=== PATIENT | female | born 1940 | race Caucasian/White ===

== ENCOUNTER 2017-12-09 12:35 | Outpatient (CLI) | payer MEDICARE, BC | END 2017-12-09 23:59 | disposition home or self-care (01) | LOC: CARD DIAG 12:35 | PROVIDERS: ATTEND Family Medicine | DX: I08.1 Rheumatic disorders of both mitral and tricuspid valves (principal); J44.9 Chronic obstructive pulmonary disease, unspecified; I27.20 Pulmonary hypertension, unspecified; R06.00 Dyspnea, unspecified | CPT/HCPCS: 93306 ==

== ENCOUNTER 2018-03-20 06:53 | Day surgery (SDC) | payer MEDICARE, BC ==
[2018-03-19 15:13] LABS: BASOPHILS % (AUTO) 0.8 % (0-1); EOSINOPHILS # (AUTO) 0.1 X10'3 (0-0.9); EOSINOPHILS % (AUTO) 1.6 % (0-6); HEMATOCRIT 40.4 % (35.0-45.0); HEMOGLOBIN 13.5 g/dl (12.0-16.0); LYMPHOCYTES # (AUTO) 1.8 X10'3 (1.1-4.8); LYMPHOCYTES % (AUTO) 28.2 % (21-51); MEAN CORPUSCULAR HGB CONC 33.3 % (33.0-36.5); MEAN CORPUSCULAR VOLUME 84.1 FL (78-98); MEAN PLATELET VOLUME 7.7 FL (7.4-10.4); MONOCYTES # (AUTO) 0.6 X10'3 (0-0.9); MONOCYTES % (AUTO) 8.8 % (2-12); NEUTROPHILS % (AUTO) 60.6 % (42-75); PLATELET COUNT 198 X10'3 (140-440); RED CELL DISTRIBUTION WIDTH 16.6 % (11.5-14.5); WHITE BLOOD COUNT 6.5 X10'3 (4.5-11.0)
[2018-03-19 15:21] LABS: PROTHROMBIN TIME 10.7 SECONDS (9.0-12.0)
[2018-03-19 15:23] LABS: ALBUMIN 3.4 G/DL (3.4-5.0); ANION GAP 7 (8-16); BLOOD UREA NITROGEN 18 MG/DL (7-18); CALCIUM 9.6 MG/DL (8.5-10.1); CHLORIDE 102 MMOL/L (99-107); GLUCOSE 109 MG/DL (70-104); SODIUM 138 MMOL/L (135-145); TOTAL CARBON DIOXIDE 29.5 MMOL/L (24-32); eGFR 61 ML/MIN
[2018-03-20] VITALS (16 sets, daily range): BP systolic 108–136; BP diastolic 54–77
[~2018-03-20] VITALS: Ht 162.6 cm; Wt 98.0 kg
[2018-03-20] MEDS ORDERED: atropine 0.1mg/ml 10ml syringe IV ONE (07:20)
[2018-03-20] MEDS ORDERED: morphine 10mg/ml inj. IV ONE (07:20)
[2018-03-20] MEDS ORDERED: diphenhydrAMINE 25mg capsule PO ONE (07:20)
[2018-03-20] MEDS ORDERED: normal saline 1000ml 1,000 ML IV SCH (07:20)
[2018-03-20] MEDS ORDERED: amiodarone in dextrose, iso-osm 150mg/100ml bag IV ONE (07:20)
[2018-03-20] MEDS ORDERED: MIDAZolam 5mg/ml 2ml vial IV ONE (07:20)
[2018-03-20] MEDS ORDERED: LORazepam 0.5 MG tablet PO ONE (07:20)
[2018-03-20] MEDS ORDERED: RESTASIS (07:43)
[2018-03-20] MEDS ORDERED: DULO-31 PO (07:43)
[2018-03-20] MEDS ORDERED: APIX5TAB3 PO (07:43)
[2018-03-20] MEDS ORDERED: LEVO112T52 PO (07:43)
[2018-03-20] MEDS ORDERED: DESL5TAB28 PO (07:43)
[2018-03-20] MEDS ORDERED: MONT10TA21 PO (07:43)
[2018-03-20] MEDS ORDERED: ESOM40CA PO (07:43)
[2018-03-20] MEDS ORDERED: SOTA80TA73 PO (07:43)
[2018-03-20] MEDS ORDERED: EXEN2PEN SQ (07:43)
[2018-03-20] MEDS ORDERED: TRAZ-219 PO (07:43)
[2018-03-20] MEDS ORDERED: METF10004 PO (07:43)
[2018-03-20] MEDS ORDERED: LOSA25TA96 PO (07:43)
[2018-03-20] MEDS ORDERED: SOLI10TA2 PO (07:43)
== END 2018-03-20 13:30 | disposition home or self-care (01) ==
LOC: SSTAY O 06:53
PROVIDERS: ATTEND Internal Medicine Cardiovascular Disease
DX: I48.1 Persistent atrial fibrillation (principal); E11.9 Type 2 diabetes mellitus without complications; I10 Essential (primary) hypertension; K21.9 Gastro-esophageal reflux disease without esophagitis; E78.5 Hyperlipidemia, unspecified; F32.9 Major depressive disorder, single episode, unspecified; E03.9 Hypothyroidism, unspecified; G47.33 Obstructive sleep apnea (adult) (pediatric); E66.9 Obesity, unspecified; J44.9 Chronic obstructive pulmonary disease, unspecified; I27.20 Pulmonary hypertension, unspecified; I08.1 Rheumatic disorders of both mitral and tricuspid valves; Z90.710 Acquired absence of both cervix and uterus; Z79.84 Long term (current) use of oral hypoglycemic drugs; Z79.01 Long term (current) use of anticoagulants; Z79.891 Long term (current) use of opiate analgesic; Z68.37 Body mass index [BMI] 37.0-37.9, adult; Z85.3 Personal history of malignant neoplasm of breast; Z91.041 Radiographic dye allergy status; Z88.0 Allergy status to penicillin; Z91.048 Other nonmedicinal substance allergy status; Z92.3 Personal history of irradiation; Z88.8 Allergy status to other drugs, medicaments and biological substances; Z79.899 Other long term (current) drug therapy; Z98.890 Other specified postprocedural states
CPT/HCPCS: 36415; 80048; 85025; 85610; 92960; 93005; J0282; J2250; J2270; J7030; Q0163; A4620; J0461

== ENCOUNTER 2018-05-13 05:56 | Day surgery (SDC) | payer MEDICARE, BC ==
[2018-05-12 12:09] LABS: BASOPHILS % (AUTO) 0.3 % (0-1); EOSINOPHILS # (AUTO) 0.1 X10'3 (0-0.9); EOSINOPHILS % (AUTO) 1.7 % (0-6); HEMATOCRIT 42.1 % (35.0-45.0); HEMOGLOBIN 13.7 g/dl (12.0-16.0); LYMPHOCYTES # (AUTO) 1.3 X10'3 (1.1-4.8); LYMPHOCYTES % (AUTO) 20.6 % (21-51); MEAN CORPUSCULAR HEMOGLOBIN 28.1 PG (27.0-31.0); MEAN CORPUSCULAR HGB CONC 32.6 % (33.0-36.5); MEAN CORPUSCULAR VOLUME 86.2 FL (78-98); MEAN PLATELET VOLUME 7.4 FL (7.4-10.4); MONOCYTES # (AUTO) 0.5 X10'3 (0-0.9); MONOCYTES % (AUTO) 7.3 % (2-12); NEUTROPHILS # (AUTO) 4.4 X10'3 (1.8-7.7); NEUTROPHILS % (AUTO) 70.1 % (42-75); PLATELET COUNT 229 X10'3 (140-440); RED BLOOD COUNT 4.89 X10'6 (4.20-5.60); RED CELL DISTRIBUTION WIDTH 17.2 % (11.5-14.5); WHITE BLOOD COUNT 6.3 X10'3 (4.5-11.0)
[2018-05-12 12:19] LABS: PROTHROMBIN TIME 10.8 SECONDS (9.0-12.0)
[2018-05-12 12:23] LABS: ALBUMIN 3.4 G/DL (3.4-5.0); ANION GAP 11 (8-16); BLOOD UREA NITROGEN 14 MG/DL (7-18); BUN/CREATININE RATIO 17.3 (6.6-38.0); CALCIUM 9.5 MG/DL (8.5-10.1); CHLORIDE 102 MMOL/L (99-107); CREATININE 0.81 MG/DL (0.40-0.90); GLUCOSE 120 MG/DL (70-104); POTASSIUM 4.1 MMOL/L (3.5-5.1); SODIUM 139 MMOL/L (135-145); eGFR 69 ML/MIN
[~2018-05-13] VITALS: Ht 162.6 cm; Wt 96.4 kg
[2018-05-13] VITALS (13 sets, daily range): BP systolic 116–145; BP diastolic 61–80
[~2018-05-13 05:56] MED LIST: APIX5TAB3 PO; DESL5TAB28 PO; DULO-31 PO; ESOM40CA PO; EXEN2PEN SQ; LEVO112T52 PO; LOSA25TA96 PO; METF-438 PO; MONT10TA21 PO; RESTASIS; SOLI10TA2 PO; SOTA80TA73 PO; TRAZ-219 PO
[2018-05-13] MEDS ORDERED: LORazepam 0.5 MG tablet PO ONE (06:15)
[2018-05-13] MEDS ORDERED: amiodarone in dextrose, iso-osm 150mg/100ml bag IV ONE (06:15)
[2018-05-13] MEDS ORDERED: normal saline 1000ml 1,000 ML IV SCH (06:15)
[2018-05-13] MEDS ORDERED: diphenhydrAMINE 25mg capsule PO ONE (06:15)
[2018-05-13] MEDS ORDERED: atropine 0.1mg/ml 10ml syringe IV ONE (06:15)
[2018-05-13] MEDS ORDERED: morphine 10mg/ml inj. IV ONE (06:15)
[2018-05-13] MEDS ORDERED: MIDAZolam 5mg/ml 2ml vial IV ONE (06:15)
[2018-05-13] MEDS ORDERED: CYAN1TAB18 PO (06:27)
[2018-05-13] MEDS ORDERED: FLECAINIDE PO (06:27)
[2018-05-13] MEDS ORDERED: CARV6.252 PO (06:27)
== END 2018-05-13 10:20 | disposition home or self-care (01) ==
LOC: SSTAY O 05:56
PROVIDERS: ATTEND Internal Medicine Cardiovascular Disease
DX: I48.1 Persistent atrial fibrillation (principal); G47.33 Obstructive sleep apnea (adult) (pediatric); E78.5 Hyperlipidemia, unspecified; I10 Essential (primary) hypertension; E11.9 Type 2 diabetes mellitus without complications; E66.9 Obesity, unspecified; K21.9 Gastro-esophageal reflux disease without esophagitis; F32.9 Major depressive disorder, single episode, unspecified; E03.9 Hypothyroidism, unspecified; I36.1 Nonrheumatic tricuspid (valve) insufficiency; Z68.36 Body mass index [BMI] 36.0-36.9, adult; Z92.3 Personal history of irradiation; Z90.710 Acquired absence of both cervix and uterus; Z79.84 Long term (current) use of oral hypoglycemic drugs; Z79.01 Long term (current) use of anticoagulants; Z85.3 Personal history of malignant neoplasm of breast; Z91.048 Other nonmedicinal substance allergy status; Z88.0 Allergy status to penicillin; Z91.041 Radiographic dye allergy status; Z88.8 Allergy status to other drugs, medicaments and biological substances; Z79.899 Other long term (current) drug therapy; Z98.890 Other specified postprocedural states; Z82.49 Family history of ischemic heart disease and other diseases of the circulatory system; Z82.3 Family history of stroke
CPT/HCPCS: 36415; 80048; 82948; 85025; 85610; 92960; 93005; J2250; J2270; J7030; A4620; J0282; J0461